=== PATIENT | male | born 1965 | race Caucasian/White ===

== ENCOUNTER 2018-02-17 19:33 | Emergency (ER) | payer OTHER, BC ==
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
[2018-02-17 20:05] VITALS: BP 138/90; PULSE 69; TEMP 98.3; BMI 38.7
[2018-02-17] MEDS ORDERED: KETOROLAC TROMETHAMINE 30 MG/1 ML VIAL IM ONE (21:43)
[2018-02-17] MEDS ORDERED: KETOROLAC TROMETHAMINE 30 MG/1 ML VIAL ONE (21:45)
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
== END 2018-02-17 21:52 | disposition home or self-care (01) ==
LOC: JERFT 19:33
PROC: 3E0233Z Introduction of Anti-inflammatory into Muscle, Percutaneous Approach (ICD-10-PCS; principal; 2018-02-17)
DX: Z04.1 Encounter for examination and observation following transport accident (principal); V43.52XA Car driver injured in collision with other type car in traffic accident, initial encounter; Y93.89 Activity, other specified; Y92.410 Unspecified street and highway as the place of occurrence of the external cause; I10 Essential (primary) hypertension; Z87.442 Personal history of urinary calculi
CPT/HCPCS: 99281-25

== ENCOUNTER 2019-02-21 16:36 | Emergency (ER) | payer OTHER ==
[2019-02-21 17:05] VITALS: BP 126/86; PULSE 70; TEMP 98.3; BMI 34.2
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
== END 2019-02-21 18:57 | disposition home or self-care (01) ==
LOC: JERFT 16:36
DX: S20.211A Contusion of right front wall of thorax, initial encounter (principal); M25.561 Pain in right knee; V49.49XA Driver injured in collision with other motor vehicles in traffic accident, initial encounter; Y92.488 Other paved roadways as the place of occurrence of the external cause; Y93.89 Activity, other specified; Y99.8 Other external cause status; I10 Essential (primary) hypertension; Z87.442 Personal history of urinary calculi
CPT/HCPCS: 71046-TC-FY; 71111-TC-FY; 73562-TC-RT-FY; 99281-25

== ENCOUNTER 2019-07-02 18:12 | Inpatient (IN) | payer BC, OTHER | END 2019-07-03 18:17 | disposition home or self-care (01) | LOC: JER 18:12 → JERBED 21:30 → J7W 23:24 ==